=== PATIENT | male | born 1930 | race Hispanic/Latino ===

== ENCOUNTER 2019-06-25 10:44 | Day surgery (SDC) | payer OTHER ==
[2019-06-25] MEDS ORDERED: SODIUM CHLORIDE 0.9% 1000 ML 1,000 ML IV SCH (11:00)
[2019-06-25] MEDS ORDERED: ACETAMINOPHEN 325 MG TAB PO ONE (11:16)
[2019-06-25] MEDS ORDERED: ONDANSETRON 4 MG/2 ML INJ IV PRN (11:16)
[2019-06-25] MEDS ORDERED: fentaNYL 100 MCG/2 ML INJ IV PRN (11:16)
--- NOTE | 2019-06-25 11:17 | Anesthesia Day of Surgery ---
Anesthesia Day of Surgery - Day of Surgery Patient Examined: Yes Patient H&P Reviewed: Yes Patient is NPO: Yes
--- NOTE | 2019-06-25 11:22 | Anesthesia Consultation ---
Anesthesia Consult and Med Hx Date of service: 06/25/19 - Airway Anesthetic Teeth Evaluation: Dentures, Edentulous ROM Head & Neck: Adequate Mental/Hyoid Distance: Adequate Mallampati Class: Class II Intubation Access Assessment: Good - Pre-Operative Health Status ASA Pre-Surgery Classification: ASA3 Proposed Anesthetic Plan: General - Pulmonary Hx Smoking: Yes (STOPPED 1994 PPD X 30 YRS. [id number] Stress ECHO) COPD: Yes (ON DAILY INHALERS) Home Oxygen Therapy: Yes Hx Sleep Apnea: No (PIPER PRE SCREEN HIGH RISK) - Cardiovascular System Hx Hypertension: Yes (OFF MEDS X 2 YRS PER MD ORDERS) Hx Cardia Arrhythmia: Yes (On stress test) Hx Peripheral Vascular Disease: Yes (STENT RIGHT LEG) - Gastrointestinal Hx Gastroesophageal Reflux Disease: Yes - Endocrine Hx Non-Insulin Dependent Diabetes: Yes - Hematic Hx Anemia: No - Other Systems Hx Cancer: Yes (INFECTION/ENLARGED LYMPH NOED UNDER LEFT ARM- NEEDS BX)
[2019-06-25] MEDS ORDERED: fentaNYL 100 MCG/2 ML INJ ONE (12:12)
[2019-06-25] MEDS ORDERED: propofoL 200 MG/20 ML VIAL IV ONE (12:12)
[2019-06-25] MEDS ORDERED: LIDOCAINE MPF (2%) 20 MG/1 ML VIAL 5 ML ONE (12:12)
[2019-06-25 12:28] LABS: INR 1.01 (0.87-1.13)
[2019-06-25 12:29] LABS: Partial Thromboplastin Time 26.7 Sec. (24.2-36.6)
[2019-06-25] MEDS ORDERED: ceFAZolin/Water 2 GM/20 ML 2 GM/20 ML SYRINGE IV NR (13:00)
[2019-06-25] MEDS ORDERED: LIDOCAINE 2% UROJECT 10 ML JELLY ONE (13:11)
[2019-06-25] MEDS ORDERED: LIDOCAINE (1%) 10 MG/1 ML VIAL 20 ML MDV ONE (13:11)
[2019-06-25] MEDS ORDERED: BUPIVACAINE/PF (0.25%) 2.5 MG/ML 30 ML VIAL INFILTRATI ONE (13:11)
[2019-06-25] MEDS ORDERED: NEOMY 40 MG/POLYMYXIN B 200,000 UNITS/ML (GU) AMPULE IR ONE ×2 (13:11→13:53)
--- NOTE | 2019-06-25 15:59 | Post Operative Note ---
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
--- NOTE | 2019-06-25 16:01 | Discharge Summary ---
Short Stay Discharge Plan Activity: other (no straining ) Weight Bearing Status: Partial Weight Bearing Diet: low fat, low cholesterol, low salt, diabetic Wound: keep clean and dry Special Instructions: other (local care ) Durable Medical Equipment Needed Upon Discharge: other (teach heart care ) Follow up with: [facility] [Primary Care Provider] - 7 Days STEPHANIE FERGUSON MD [Staff Physician] - 48 Hours
[2019-06-25] MEDS ORDERED: NEOMY 3.5 MG/BACIT 400 UNITS/POLY B 5000 UNITS/GM OINT PACKET TP ONE (16:13)
--- NOTE | 2019-06-25 16:30 | Operative Report ---
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 PROCEDURE: Total reconstruction of the penis with mobilization of the penis urethrotomy and flexible urethroscopy insertion of [place] catheter. SURGEON: Dr. Rajan. ANESTHESIA: General. FINDINGS: This is an 89-year-old gentleman who has not seen his penis according to the patient and his for decades. It is totally hidden and it is totally scarred up around the skin. He now presents for treatment. DESCRIPTION OF PROCEDURE: The patient was brought to the operating room and placed on the operating table. Following induction of anesthesia, placed in supine position, prepped and draped in usual sterile fashion. A dorsal and ventral slit were created. We could palpate the penis, but there was severe scarring around the head of the penis. We mobilized the penis from the base and worked distally. We freed up the penis by placing a suture in whatever glans remained viable and so it looked to be the meatus. We could not get a wire through the meatus. The meatus was almost totally obliterated. Once we freed up the penis with the stay suture on the glans, which was excised some of the severe scar tissue on the skin and around the penis. We then mobilized the spongiosum and flexible ureteroscopy with a flexible ureteroscope. We could not see a channel at the entire distal urethra was basically scar. A wire could not be inserted. We made a small urethrotomy and placed a wire into the bladder and then placed it distally through the old meatus. We dilated that to 20-Slovenian and placed an 18 [place]. The urethrotomy was closed in 2 layers with 4-0 Vicryl. The surrounding reconstruction was then carried out in circumferential fashion using the skin and the coronal whatever tissue was left. There was lateral raw surface. The patient tolerated the procedure well. Estimated blood loss less than 30 mL. He was brought to recovery room with a Tegaderm dressing, 18 [place] in stable condition. JOB# [id number] BERTHA/TREV
[2019-06-25 16:53] VITALS: BP 136/74
--- NOTE | 2019-06-25 17:23 | Post Anesthesia Evaluation ---
- Post Anesthesia Evaluation Patient Participated: Yes Airway Patent: Yes Stable Respiratory Function: Yes Nausea/Vomiting: No Temp > 96.8F: Yes Pain Manageable: Yes Adequeate Hydration: Yes Anesthesia Complications: No Block Receding Appropriately: Yes (motor and sensory block resolved at time of d/c; LE motor strength at preop baseline)
== END 2019-06-25 16:55 | disposition home or self-care (01) ==
LOC: OR 10:44
PROVIDERS: ATTEND Urology
DX: N48.0 Leukoplakia of penis (principal)
CPT/HCPCS: 36415; 54440; 82962; 85610; 85730; 88305; 88312; C1726; J0690; J2704; J3010; J7030; A6250